=== PATIENT | female | born 1985 | race African-American/Black ===

== ENCOUNTER 2024-08-27 20:36 | Emergency (ER) | payer SELFPAY ==
[2024-08-27] MEDS ORDERED: Ibuprofen 200 MG TAB ONE (21:08)
== END 2024-08-27 21:20 | disposition home or self-care (01) ==
LOC: CSHERS 20:36
DX: K04.7 Periapical abscess without sinus (principal); F17.210 Nicotine dependence, cigarettes, uncomplicated